=== PATIENT | male | born 1995 | race African-American/Black ===

== ENCOUNTER → 2023-10-21 08:52 | Outpatient (CLI) | payer OTHER, SELFPAY ==
--- NOTE | 2023-10-21 | DI.MRI.S_ITS ---
PROCEDURE: MR HEAD/BRAIN WO CON INDICATIONS: Other headache syndrome TECHNIQUE: Noncontrast axial T1 spin echo, axial T2 fast spin echo, sagittal and axial FLAIR, coronal T2 fast spin echo, axial gradient echo, axial diffusion and ADC through the brain. COMPARISON: None. FINDINGS: Image quality: Diagnostic, with note made of motion artifact. CSF Spaces: Basal cisterns are patent. No extra-axial fluid collections. Ventricles are normal in size and shape. Brain: No intracranial masses or hemorrhage. Cain/white matter interface is normal. Brainstem appears normal. Diffusion-weighted images demonstrate no acute infarct. No chronic ischemic insults. Normal intravascular flow voids are present. Skull and face: Calvarium has normal marrow signal. Orbits appear normal. Sinuses: Sinuses and mastoids are clear. IMPRESSION: Unremarkable intracranial study, without an imaging explanation found for the patient's presenting history of headache. To the limits of this noncontrast study, no findings masses or mass effect can be seen. Dictated by: Talon Rene M.D. on 10/21/2023 at 9:39 Approved by: Talon Rene M.D. on 10/21/2023 at 9:40
== END ==
LOC: MRI 08:53
PROVIDERS: Referring Provider Student in an Organized Health Care Education/Training Program; Visit Provider Student in an Organized Health Care Education/Training Program
DX: G44.89 Other headache syndrome (principal)
CPT/HCPCS: 70551